=== PATIENT | female | born 1945 | race American Indian/Alaskan Native ===

== ENCOUNTER 2016-08-18 21:33 | Emergency (ER) | payer SELFPAY ==
[2016-08-18 22:08] VITALS: BP 163/81
[2016-08-18 23:09] LABS: Basophils % (Auto) 1.7 % (0.0-1.8); Eosinophils % (Auto) 1.9 % (0.0-4.3); Hematocrit 37.1 % (30.3-42.9); Hemoglobin 12.1 gm/dl (10.1-14.3); Mean Corpuscular HGB Conc 33 % (30-34); Mean Corpuscular Hemoglobin 26 pg (28-32); Mean Corpuscular Volume 81 fl (79-97); Platelet Count 138 K/mm3 (140-440); Red Blood Count 4.61 M/mm3 (3.65-5.03); White Blood Count 7.8 K/mm3 (4.5-11.0)
[2016-08-18 23:16] LABS: INR 1.08 (0.87-1.13)
[2016-08-18 23:17] LABS: Partial Thromboplastin Time 27.1 Sec. (24.2-36.6)
[2016-08-18 23:27] LABS: Anion Gap 16 mmol/L; Blood Urea Nitrogen 24 mg/dL (7-17); Calcium 9.4 mg/dL (8.4-10.2); Carbon Dioxide 30 mmol/L (22-30); Chloride 99.9 mmol/L (98-107); Creatine Kinase MB 1.9 ng/mL (0.0-4.0); Glucose 110 mg/dL (65-100); Potassium 4.3 mmol/L (3.6-5.0); Sodium 142 mmol/L (137-145)
[2016-08-18 23:31] LABS: C-Reactive Protein 0.2 mg/dL (0.00-1.30)
[2016-08-18 23:40] LABS: Erythrocyte Sedimentation Rate 24 mm/Hr (0-20)
--- NOTE | 2016-08-19 09:23 | XRay Report ---
Chest 2 views: History: Chest pain. Findings: Normal cardiomediastinal silhouette. Trachea is midline. No consolidation, pneumothorax or pleural effusion. Impression: No acute cardiopulmonary findings.
--- NOTE | 2016-08-20 11:00 | ED Elopement Review ---
ED Pt Elopement review - Results review Lab results: Laboratory Tests 08/18/16 08/18/16 08/18/16 22:47 22:47 22:47 WBC 7.8 RBC 4.61 Hgb 12.1 Hct 37.1 MCV 81 MCH 26 L MCHC 33 RDW 15.0 Plt Count 138 L Lymph % (Auto) 29.9 Polk % (Auto) 9.1 H Eos % (Auto) 1.9 Baso % (Auto) 1.7 Lymph # 2.3 Polk # 0.7 Eos # 0.2 Baso # 0.1 Seg Neutrophils % 57.4 Seg Neutrophils # 4.5 ESR 24 PT 13.9 INR 1.08 APTT 27.1 VBG pH Sodium 142 Potassium 4.3 Chloride 99.9 Carbon Dioxide 30 Anion Gap 16 BUN 24 H Creatinine 1.0 Estimated GFR 54 BUN/Creatinine Ratio 24.00 Glucose 110 H Lactic Acid Calcium 9.4 Total Creatine Kinase CK-MB (CK-2) CK-MB (CK-2) Rel Index Troponin T < 0.010 C-Reactive Protein NT-Pro-B Natriuret Pep 08/18/16 08/18/16 08/18/16 22:47 22:47 22:47 WBC RBC Hgb Hct MCV MCH MCHC RDW Plt Count Lymph % (Auto) [place]k % (Auto) Eos % (Auto) Baso % (Auto) Lymph # [place]k # Eos # Baso # Seg Neutrophils % Seg Neutrophils # ESR PT INR APTT VBG pH 7.354 Sodium Potassium Chloride Carbon Dioxide Anion Gap BUN Creatinine Estimated GFR BUN/Creatinine Ratio Glucose Lactic Acid 1.20 Calcium Total Creatine Kinase 213 H CK-MB (CK-2) 1.9 CK-MB (CK-2) Rel Index 0.8 Troponin T C-Reactive Protein 0.20 NT-Pro-B Natriuret Pep 74.29 - Call Back decision Pt Call Back Decision: Call pt to return to ED [facility] (old person with CP)
== END 2016-08-19 00:12 | disposition left against medical advice (07) ==
LOC: ED 21:33
DX: R07.9 Chest pain, unspecified (principal); Z53.21 Procedure and treatment not carried out due to patient leaving prior to being seen by health care provider
CPT/HCPCS: 36415; 71020; 80048; 82140; 82550; 82553; 82805; 83880; 84484; 85025; 85610; 85652; 85730; 86140; 93005; 93010